=== PATIENT | male | born 1945 | race Caucasian/White ===

== ENCOUNTER 2018-01-12 09:14 | Outpatient (REF) | payer OTHER, SELFPAY ==
[2018-01-12 21:26] LABS: Cholesterol 116 mg/dL (50-200); HDL Cholesterol 40 mg/dL (40-60); LDL CHOLESTEROL 60 mg/dL (<100); Triglyceride 129 mg/dL (30-150)
[2018-01-14 09:16] LABS: PSA, Screening 1.3 ng/ml (0-6.5)
== END 2018-01-12 09:15 ==
LOC: NCHCN 09:14
PROVIDERS: PCP Internal Medicine; Visit Provider Internal Medicine
DX: Z00.00 Encounter for general adult medical examination without abnormal findings (principal); Z13.220 Encounter for screening for lipoid disorders; Z12.5 Encounter for screening for malignant neoplasm of prostate
CPT/HCPCS: 80061; 83721; 84153

== ENCOUNTER 2018-07-18 13:04 | Outpatient (REF) | payer OTHER, SELFPAY ==
[2018-07-18 21:28] LABS: Anion Gap 10.8 mmol/L (3-11); BUN 18 mg/dL (7-18); CO2 25.2 mmol/L (21.0-32.0); CREATININE 0.92 mg/dL (0.70-1.30); Calcium 8.9 mg/dL (8.5-10.1); Chloride 106 mmol/L (98-107); Cholesterol 116 mg/dL (50-200); Glucose 121 mg/dL (70-100); HDL Cholesterol 41 mg/dL (40-60); LDL CHOLESTEROL 58 mg/dL (<100); Potassium 4.4 mmol/L (3.5-5.1); Sodium 142 mmol/L (136-145); Triglyceride 75 mg/dL (30-150)
== END 2018-07-18 13:24 ==
LOC: NCHCN 13:04
PROVIDERS: PCP Internal Medicine; Visit Provider Internal Medicine
DX: E11.9 Type 2 diabetes mellitus without complications (principal); I25.10 Atherosclerotic heart disease of native coronary artery without angina pectoris; I69.951 Hemiplegia and hemiparesis following unspecified cerebrovascular disease affecting right dominant side
CPT/HCPCS: 80048; 80061; 83721

== ENCOUNTER 2020-09-05 21:18 | Outpatient (REF) | payer OTHER, SELFPAY ==
[2020-09-05 20:17] LABS: HCT 43.2 % (40.0-50.0); HGB 15.4 g/dL (13.5-17.5); MCH 32.1 pg (27.0-33.0); MCHC 35.6 % (32.0-36.0); MPV 10.9 fL (8.0-11.0); Platelet Count 262 10^3/uL (130-400); RDW 13.6 % (11.8-14.1); RDW-SD 45.2 fL; WBC 8.75 10^3/uL (4.4-10.8)
[2020-09-05 20:42] LABS: ALT 49 U/L (16-63); AST 20 U/L (15-37); Albumin 4.4 g/dL (3.4-5.0); Alkaline Phosphatase 102 U/L (46-116); Anion Gap 10.2 mmol/L (3-11); BUN 15 mg/dL (7-18); Bilirubin, Total 0.6 mg/dL (0.2-1.0); CO2 23.8 mmol/L (21.0-32.0); CREATININE 0.8 mg/dL (0.70-1.30); Calcium 9.2 mg/dL (8.5-10.1); Calculated LDL 55 mg/dL (<100); Chloride 105 mmol/L (98-107); Cholesterol 117 mg/dL (<200); Glucose 104 mg/dL (74-106); HDL Cholesterol 42 mg/dL (40-60); Potassium 4.4 mmol/L (3.5-5.1); Sodium 139 mmol/L (136-145); Total Protein 7.7 g/dL (6.4-8.2); Triglyceride 101 mg/dL (<150)
== END 2020-09-05 21:19 | disposition home or self-care (01) ==
LOC: NCHCN 21:18
PROVIDERS: PCP Internal Medicine; Visit Provider Internal Medicine
DX: E11.9 Type 2 diabetes mellitus without complications (principal); I10 Essential (primary) hypertension; E78.5 Hyperlipidemia, unspecified; Z01.818 Encounter for other preprocedural examination
CPT/HCPCS: 80053; 80061; 85027

== ENCOUNTER 2021-04-04 09:44 | Outpatient (REF) | payer MEDICARE, SELFPAY ==
[2021-04-04 16:40] LABS: ALT 37 U/L (16-63); AST 20 U/L (15-37); Albumin 4.1 g/dL (3.4-5.0); Alkaline Phosphatase 109 U/L (46-116); Bilirubin, Total 0.5 mg/dL (0.2-1.0)
[2021-04-04 17:00] LABS: Bilirubin, Direct 0.2 mg/dL (0.0-0.2)
== END 2021-04-04 09:45 | disposition home or self-care (01) ==
LOC: NCHCN 09:44
PROVIDERS: PCP Internal Medicine; Visit Provider Internal Medicine
DX: Z51.81 Encounter for therapeutic drug level monitoring (principal)
CPT/HCPCS: 80076

== ENCOUNTER 2021-09-10 08:16 | Outpatient (REF) | payer MEDICARE, SELFPAY ==
[2021-09-10 16:56] LABS: Abs Immature Grans 0.04 10^3/uL (0.0-0.06); Absolute Basophil Count 0.02 10^3/uL (0.0-0.2); Absolute Eosinophil Count 0.13 10^3/uL (0.0-0.7); Absolute Lymphocyte Count 2.41 10^3/uL (1.2-3.4); Absolute Monocyte Count 0.62 10^3/uL (0.1-0.8); Absolute Neutrophil Count 4.44 10^3/uL (1.2-6.7); Basophils % 0.3; Eosinophils % 1.7; HGB 15.4 g/dL (13.5-17.5); Immature Grans % 0.5; Lymphocytes % 31.5; MCH 32.2 pg (27.0-33.0); MCHC 34.2 % (32.0-36.0); MCV 93.9 fL (80-95); MPV 11.1 fL (8.0-11.0); Monocytes % 8.1; Neutrophils % 57.9; Nucleated RBC 0 %; Platelet Count 240 10^3/uL (130-400); RBC 4.79 10^6/uL (4.36-5.78); RDW-SD 48.5 fL; WBC 7.66 10^3/uL (4.4-10.8)
[2021-09-10 18:03] LABS: Hemoglobin A1C 6.7 % (<5.7)
[2021-09-10 18:37] LABS: ALT 34 U/L (16-63); AST 20 U/L (15-37); Albumin 4.4 g/dL (3.4-5.0); Alkaline Phosphatase 113 U/L (46-116); Anion Gap 8.2 mmol/L (3-11); BUN 14 mg/dL (7-18); Bilirubin, Total 0.6 mg/dL (0.2-1.0); CO2 27.8 mmol/L (21.0-32.0); CREATININE 0.8 mg/dL (0.70-1.30); Calcium 9.1 mg/dL (8.5-10.1); Chloride 107 mmol/L (98-107); Glucose 129 mg/dL (74-106); Potassium 4.4 mmol/L (3.5-5.1); Sodium 143 mmol/L (136-145); Total Protein 7.3 g/dL (6.4-8.2)
[2021-09-11 14:48] LABS: Calculated LDL 50 mg/dL (<100); Cholesterol 97 mg/dL (<200); HDL Cholesterol 39 mg/dL (40-60); Triglyceride 40 mg/dL (<150)
== END 2021-09-10 08:17 | disposition home or self-care (01) ==
LOC: NCHCN 08:16
PROVIDERS: PCP Internal Medicine; Visit Provider Internal Medicine
DX: E11.9 Type 2 diabetes mellitus without complications (principal); E78.5 Hyperlipidemia, unspecified; Z51.81 Encounter for therapeutic drug level monitoring
CPT/HCPCS: 80053; 80061; 83036; 85025

== ENCOUNTER 2022-03-16 14:20 | Outpatient (REF) | payer MEDICARE, SELFPAY ==
[2022-03-16 14:32] LABS: HCT 44.1 % (40.0-50.0); HGB 15.3 g/dL (13.5-17.5); MCH 32.1 pg (27.0-33.0); MCHC 34.7 % (32.0-36.0); MCV 93 fL (80-95); MPV 10.4 fL (8.0-11.0); Platelet Count 273 10^3/uL (130-400); RBC 4.77 10^6/uL (4.36-5.78); RDW 13.4 % (11.8-14.1); RDW-SD 45.9 fL; WBC 8.35 10^3/uL (4.4-10.8)
[2022-03-16 14:49] LABS: ALT 32 U/L (16-63); AST 28 U/L (15-37); Albumin 4.4 g/dL (3.4-5.0); Alkaline Phosphatase 108 U/L (46-116); Anion Gap 9.1 mmol/L (3-11); BUN 13 mg/dL (7-18); CO2 26.9 mmol/L (21.0-32.0); CREATININE 0.9 mg/dL (0.70-1.30); Calcium 9.3 mg/dL (8.5-10.1); Chloride 102 mmol/L (98-107); Estimated GFR 87.42 (mL/min/1.73m2); Glucose 125 mg/dL (74-106); Potassium 4.5 mmol/L (3.5-5.1); Sodium 138 mmol/L (136-145); Total Protein 7.8 g/dL (6.4-8.2)
[2022-03-16 16:21] LABS: COMMENT (LAB VIEW ONLY) 126.72 mg/dL; Microalb ug/mg Crea 4.8 ug/mg Cr
== END 2022-03-16 14:21 | disposition home or self-care (01) ==
LOC: NCHCN 14:20
PROVIDERS: PCP Internal Medicine; Visit Provider Internal Medicine
DX: R10.11 Right upper quadrant pain (principal); E11.9 Type 2 diabetes mellitus without complications
CPT/HCPCS: 80053; 85027; 82043; 82570

== ENCOUNTER 2023-03-15 11:43 | Outpatient (REF) | payer MEDICARE, SELFPAY ==
[2023-03-15 14:39] LABS: HCT 42.8 % (40.0-50.0); HGB 14.9 g/dL (13.5-17.5); MCH 32.3 pg (27.0-33.0); MCHC 34.8 % (32.0-36.0); MCV 93 fL (80-95); MPV 10.4 fL (8.0-11.0); Platelet Count 246 10^3/uL (130-400); RBC 4.61 10^6/uL (4.36-5.78); RDW-SD 47.4 fL; WBC 6.81 10^3/uL (4.4-10.8)
[2023-03-15 14:57] LABS: ALT 33 U/L (16-63); AST 23 U/L (15-37); Alkaline Phosphatase 101 U/L (46-116); Anion Gap 9.2 mmol/L (3-11); BUN 18 mg/dL (7-18); Bilirubin, Total 0.8 mg/dL (0.2-1.0); CO2 25.8 mmol/L (21.0-32.0); CREATININE 0.9 mg/dL (0.70-1.30); Calcium 9.5 mg/dL (8.5-10.1); Calculated LDL 52 mg/dL (<100); Chloride 101 mmol/L (98-107); Cholesterol 104 mg/dL (<200); Estimated GFR 86.88 (mL/min/1.73m2); HDL Cholesterol 42 mg/dL (40-60); Potassium 4.3 mmol/L (3.5-5.1); Sodium 136 mmol/L (136-145); Total Protein 7.3 g/dL (6.4-8.2); Triglyceride 51 mg/dL (<150)
[2023-03-15 15:27] LABS: Glucose 153 mg/dL (74-106)
== END 2023-03-15 11:44 | disposition home or self-care (01) ==
LOC: NCHCN 11:43
PROVIDERS: PCP Internal Medicine; Visit Provider Internal Medicine
DX: I25.10 Atherosclerotic heart disease of native coronary artery without angina pectoris (principal); E11.9 Type 2 diabetes mellitus without complications; Z86.79 Personal history of other diseases of the circulatory system; Z79.01 Long term (current) use of anticoagulants; Z00.00 Encounter for general adult medical examination without abnormal findings; I10 Essential (primary) hypertension; E78.5 Hyperlipidemia, unspecified
CPT/HCPCS: 80053; 80061; 85027; 83036

== ENCOUNTER 2023-03-22 15:16 | Outpatient (REF) | payer MEDICARE, SELFPAY ==
[2023-03-22 18:19] LABS: COMMENT (LAB VIEW ONLY) 80.72 mg/dL; Microalb ug/mg Crea 3.5 ug/mg Cr
== END 2023-03-22 15:17 | disposition home or self-care (01) ==
LOC: NCHCN 15:16
PROVIDERS: PCP Internal Medicine; Visit Provider Internal Medicine
DX: E11.9 Type 2 diabetes mellitus without complications (principal)
CPT/HCPCS: 82043; 82570

== ENCOUNTER 2024-03-15 10:07 | Outpatient (REF) | payer MEDICARE, SELFPAY ==
[2024-03-15 14:50] LABS: HGB 14.9 g/dL (13.5-17.5); MCHC 33.9 % (32.0-36.0); MCV 97 fL (80-95); MPV 11.7 fL (8.0-11.0); Platelet Count 235 10^3/uL (130-400); RBC 4.52 10^6/uL (4.36-5.78); RDW 13.6 % (11.8-14.1); RDW-SD 48.9 fL; WBC 6.55 10^3/uL (4.4-10.8)
[2024-03-15 15:10] LABS: ALT 30 U/L (16-63); AST 26 U/L (15-37); Albumin 4.2 g/dL (3.4-5.0); Alkaline Phosphatase 96 U/L (46-116); Anion Gap 6.3 mmol/L (3-11); BUN 12 mg/dL (7-18); Bilirubin, Total 1.02 mg/dL (0.2-1.0); CO2 29.7 mmol/L (21.0-32.0); CREATININE 0.9 mg/dL (0.70-1.30); Calcium 9.3 mg/dL (8.5-10.1); Calculated LDL 42 mg/dL (<100); Chloride 104 mmol/L (98-107); Cholesterol 99 mg/dL (<200); Estimated GFR 86.34 (mL/min/1.73m2); Glucose 126 mg/dL (74-106); HDL Cholesterol 46 mg/dL (40-60); Potassium 4.5 mmol/L (3.5-5.1); Sodium 140 mmol/L (136-145); Total Protein 7.5 g/dL (6.4-8.2); Triglyceride 58 mg/dL (<150)
== END 2024-03-15 10:08 | disposition home or self-care (01) ==
LOC: NCHCN 10:07
PROVIDERS: PCP Internal Medicine; Visit Provider Internal Medicine
DX: E78.5 Hyperlipidemia, unspecified (principal); E11.9 Type 2 diabetes mellitus without complications
CPT/HCPCS: 80053; 80061; 85027; 83036

== ENCOUNTER 2024-03-20 15:05 | Outpatient (REF) | payer MEDICARE, SELFPAY ==
[2024-03-20 15:48] LABS: COMMENT (LAB VIEW ONLY) 61.13 mg/dL; Microalb ug/mg Crea 2.8 ug/mg Cr
== END 2024-03-20 15:06 | disposition home or self-care (01) ==
LOC: NCHCN 15:05
PROVIDERS: PCP Internal Medicine; Visit Provider Internal Medicine
DX: E11.9 Type 2 diabetes mellitus without complications (principal)
CPT/HCPCS: 82043; 82570

== ENCOUNTER 2024-05-26 15:02 | Outpatient (REF) | payer MEDICARE, SELFPAY ==
--- NOTE | 2024-05-26 13:45 | SKI_PTH ---
PATIENT: Marques Britton LOC: [facility] U#:[id number] AGE/SX: 78/M ROOM: RE05/26/[address]: Chanell Beatty : 1945 BED: DIS: 05/26/2024 SPEC #: [id number] RECD: 05/29/24 12:32 STATUS: TONI REEduardo #: [id number] DAVEY: 05/26/24 13:[address]: Chanell Beatty DEPT: Surgical Specimen RECD BY: Kailey Lebron ENTERED: 05/29/24 12:32 SP TYPE: OLIVERIO WILLIAMSON DR: Lionel Richey Tissues: 1 - SKIN BIOPSY(SHAVE/PUNCH) Procedures: SKIN LEVEL 4 SPECIAL STAIN 1 Comments: [id number]
[2024-05-26 21:37] LABS: ALT 32 U/L (16-63); AST 30 U/L (15-37); Albumin 4.5 g/dL (3.4-5.0); Alkaline Phosphatase 94 U/L (46-116); Anion Gap 9.1 mmol/L (3-11); BUN 10 mg/dL (7-18); Bilirubin, Total 0.85 mg/dL (0.2-1.0); CO2 28.9 mmol/L (21.0-32.0); CREATININE 0.9 mg/dL (0.70-1.30); Calcium 9.4 mg/dL (8.5-10.1); Chloride 106 mmol/L (98-107); Estimated GFR 86.34 (mL/min/1.73m2); Glucose 125 mg/dL (74-106); Potassium 4.3 mmol/L (3.5-5.1); Sodium 144 mmol/L (136-145); Total Protein 8.1 g/dL (6.4-8.2)
== END 2024-05-26 15:03 | disposition home or self-care (01) ==
LOC: NCHCN 15:02
PROVIDERS: PCP Internal Medicine; Visit Provider Internal Medicine
DX: L29.9 Pruritus, unspecified (principal)
CPT/HCPCS: 80053; 88305; 88312

== ENCOUNTER 2025-03-26 12:22 | Outpatient (REF) | payer MEDICARE, SELFPAY ==
[2025-03-26 14:41] LABS: HCT 43.3 % (40.0-50.0); HGB 15.3 g/dL (13.5-17.5); MCH 33.1 pg (27.0-33.0); MCHC 35.3 % (32.0-36.0); MCV 94 fL (80-95); MPV 10.5 fL (8.0-11.0); Platelet Count 225 10^3/uL (130-400); RBC 4.62 10^6/uL (4.36-5.78); RDW 13.6 % (11.8-14.1); RDW-SD 46.0 fL; WBC 7.43 10^3/uL (4.4-10.8)
[2025-03-26 14:56] LABS: ALT 35 U/L (16-63); AST 20 U/L (15-37); Albumin 4.2 g/dL (3.4-5.0); Alkaline Phosphatase 103 U/L (46-116); Anion Gap 9.1 mmol/L (3-11); BUN 14 mg/dL (7-18); Bilirubin, Total 0.9 mg/dL (0.2-1.0); CO2 27.9 mmol/L (21.0-32.0); Calcium 9.2 mg/dL (8.5-10.1); Calculated LDL 49 mg/dL (<100); Chloride 104 mmol/L (98-107); Cholesterol 105 mg/dL (<200); Estimated GFR 88.91 (mL/min/1.73m2); Glucose 132 mg/dL (74-106); HDL Cholesterol 44 mg/dL (>or=40); Potassium 4.6 mmol/L (3.5-5.1); Sodium 141 mmol/L (136-145); Total Protein 7.7 g/dL (6.4-8.2); Triglyceride 61 mg/dL (<150)
[2025-03-26 17:24] LABS: COMMENT (LAB VIEW ONLY) 87.96 mg/dL; Microalb ug/mg Crea 3.5 ug/mg Cr
== END 2025-03-26 12:23 | disposition home or self-care (01) ==
LOC: NCHCN 12:22
PROVIDERS: PCP Internal Medicine; Visit Provider Internal Medicine
DX: I25.10 Atherosclerotic heart disease of native coronary artery without angina pectoris (principal); E11.9 Type 2 diabetes mellitus without complications
CPT/HCPCS: 80053; 80061; 85027; 82043; 82570